=== PATIENT | female | born 2000 ===

== ENCOUNTER 2024-05-18 01:40 | Emergency (ER) | payer OTHER, SELFPAY ==
--- NOTE | 2024-05-18 01:55 | ECG_ITS ---
Test Date: 2024-05-18 01:59:28 Measurements Intervals [place] Rate: 80 P: 60 MT: 158 QRS: 17 QRSD: 92 T: 20 QT: 362 QTc: 420 Interpretive Statements SINUS RHYTHM NONSPECIFIC T-WAVE ABNORMALITY ABNORMAL ECG Electronically Signed On 05-18-2024 10:03:29 CDT by Raman Connelly M.D.
[2024-05-18 02:01] VITALS: BP 126/73; PULSE 83; RESP 18; TEMP 36.5; O2SAT 100
--- NOTE | 2024-05-18 02:30 | PC.NURSE ---
pt ambulatory to triage desk and asks for how long to be seen by doctor and worried about the results for her EKG. ceo & founder assured pt that her EKG was seen by doctor and if it was anything emergent they would have pulled her back to a room. Pt asked if she should wait to be seen or go see her PCP. ceo & founder advised pt to stay and be fully worked up if needed to and has no idea on wait time and further explained our triage protocols. Pt states you can go ahead and take me off list and I will wait for my primary . Pt left without being seen.
--- OUTSIDE RECORDS SUMMARY | 2024-05-18 02:47 | XMS_ITS ---
Author Organization [facility] santos Address [address] [address] [place] [address] Care Team Providers Care Senior Construction Project Manager Name Role Phone Farooq QUEVEDO, Belkis Primary Care Provider Richard jania Jimmy Rafia Newberry [phone] REASON FOR VISIT yd,needs diagnosed - has normal labs,cc Encounters Encounter Location Date Provider Diagnosis [facility] [address] [facility] [address] [place] [address] 06/27/2023 Rafia Pedraza Plan Of Treatment No Information Progress Notes * ABDOULAYEKaterine MATTSONSheridanOB:2000 (23 yo F)Acc No.[id number]:06/27/2023 Progress Notes Patient: Verónica GUZMAN Provider: Dayana PEDRAZA MD :2000 A ge:22 Y S ex:Female Date:06/27/2023 Address:[address] [place], [place] [id number] Pcp:Belkis Trivedi NP Subjective: * Chief Complaints: * 1 . Yd,needs diagnosed - has normal labs,cc. * Medical History: Objective: * Vitals: Assessment: Plan: * Treatment: * Billing Information: * Visit Code: * Procedure Codes: * Electronic signature of Rafia Pedraza MD on 05/18/2024 at 02:47 AM CDT Sign off status: Pending * Provider: Dayana PEDRAZA MD Date: 06/27/2023 Generated for Pam murphy/Victoria/Danya on: 0 05/18/2024 02:47 AM CDT
--- OUTSIDE RECORDS SUMMARY | 2024-05-18 02:47 | XMS_ITS ---
Author Organization [facility] Address [address] [facility] [address] [place] [address] Care Team Providers Care Director Of Accreditation Name Role Phone Farooq [facility] CNA, Belkis Primary Care Provider Rafia Michael [phone] REASON FOR VISIT [place] Encounters Encounter Location Date Provider Diagnosis [facility] [address] [facility] [address] [place] [address] 06/07/2023 Rafia Marquez Plan Of Treatment No Information Progress Notes * Daniel VELAZQUEZOB:2000 (22 yo F)Acc No.[id number]:06/07/2023 Patient: Soni MADYOsmel Verónica :2000 A ge:22 Y S ex:Female Address:[address] [place] [address], [address] * true * Date: Generated for Pam murphy/Victoria/Scottyitting on: 0 05/18/2024 02:47 AM CDT
--- OUTSIDE RECORDS SUMMARY | 2024-05-18 02:48 | XMS_ITS | Patient Health Record ---
Author Organization [facility] santos Address [address] [facility] [address] [place] [address] Care Team Providers Care Digital Account Coordinator Name Role Phone Farooq QUEVEDO, Belkis Primary Care Provider Rafia Michael [phone] Reason For Referral No Information Encounters Encounter Location Date Provider Diagnosis [facility] [address] [facility] [address] [place] [address] 06/07/2023 Rafia Marquez Plan Of Treatment No Information Insurance Providers Payer Name Payer Address Payer Phone Subscriber Number Group Number Insured Name Patient Relationship to Insured Coverage Start Date Coverage End Date [place] Complete [address] [place] [address] [id number] Verónica Velazquez Self - patient is the insured
== END 2024-05-18 03:57 | disposition left against medical advice (07) ==
PROVIDERS: Emergency Provider Emergency Medicine
DX: R68.84 Jaw pain (principal)
CPT/HCPCS: 93005; 99199